=== PATIENT | male | born 1995 | race Caucasian/White ===

== ENCOUNTER 2024-04-15 19:35 | Inpatient (IN) | payer MEDICAID ==
[~2024-04-15] VITALS: Ht 175.3 cm; Wt 88.9 kg
[~2024-04-15 19:35] MED LIST: ARIP10TA38 PO; SERT-440 PO
[2024-04-15 21:11] VITALS: BP 123/80; PULSE 82; RESP 18; TEMP 98.5; O2SAT 97
[2024-04-16] MEDS ORDERED: ACETAMINOPHEN 325 MG TABLET PO PRN (07:45)
[2024-04-16] MEDS ORDERED: BACITRACIN 28 GM OINTMENT TP PRN (07:45)
[2024-04-16] MEDS ORDERED: PETROLATUM,WHITE 28 GM JELLY TP PRN (07:45)
[2024-04-16] MEDS ORDERED: MAG HYDROX/ALUMINUM HYD/SIMETH ES 30 ML SUSPENSION UDCUP PO PRN (07:45)
[2024-04-16] MEDS ORDERED: MAGNESIUM HYDROXIDE SUSPENSION 30 ML UDCUP PO PRN (07:45)
[2024-04-16] MEDS ORDERED: CloNIDine HCL 0.1 MG TABLET PO PRN (07:45)
[2024-04-16] MEDS ORDERED: DOCUSATE SODIUM 100 MG CAPSULE PO PRN (07:45)
[2024-04-16] MEDS ORDERED: OMEPRAZOLE 20 MG CAPSULE PO PRN (07:45)
[2024-04-16] MEDS ORDERED: LOPERAMIDE HCL 2 MG CAPSULE PO PRN (07:45)
[2024-04-16 08:06] LABS: BASOPHILS % (AUTO) 0.8 % (0.0-2.0); EOSINOPHILS % (AUTO) 0.9 % (1.0-6.0); HEMOGLOBIN 14.9 g/dL (13.5-17.5); LYMPHOCYTES # (AUTO) 2.1 K/uL (1.0-4.8); LYMPHOCYTES % (AUTO) 23.2 % (22.0-44.0); MEAN CORPUSCULAR HEMOGLOBIN 31.9 pg (26.0-34.0); MEAN CORPUSCULAR HGB CONC 34.7 G/dL (31.0-37.0); MEAN CORPUSCULAR VOLUME 92 fL (80-100); MONOCYTES # (AUTO) 0.7 K/uL (0.1-1.0); MONOCYTES % (AUTO) 7.7 % (2.0-9.0); NEUTROPHILS # (AUTO) 5.9 K/uL (1.8-7.7); NEUTROPHILS % (AUTO) 67.4 % (40.0-70.0); PLATELET COUNT (AUTO) 219 K/uL (150-450); RED BLOOD CELL COUNT(AUTO) 4.69 MIL/uL (4.50-5.90); RED CELL DISTRIBUTION WIDTH 13.3 % (11.5-14.5); WHITE BLOOD COUNT (AUTO) 8.8 K/uL (4.5-11.0)
[2024-04-16 08:14] LABS: HEMOGLOBIN A1C 5.2 % (3.8-5.6)
[2024-04-16 08:20] LABS: ALANINE AMINOTRANSFERASE 28 U/L (12-78); ALBUMIN 4.2 g/dL (3.4-5.0); ALKALINE PHOSPHATASE 74 U/L (46-116); ANION GAP 8 mmol/L (8-16); ASPARTATE AMINOTRANSFERASE 20 U/L (15-37); BILIRUBIN,TOTAL 0.3 mg/dL (0.1-1.0); CALCIUM, TOTAL 9.1 mg/dL (8.8-10.5); CARBON DIOXIDE 29 mmol/L (22-29); CHLORIDE 103 mmol/L (98-107); CHOL/HDL RATIO 3.1 (4.2-7.3); CHOLESTEROL 191 mg/dL (131-200); FREE T4 (FREE THYROXINE) 0.83 ng/dL (0.76-1.46); GLOMERULAR FILTR. RATE CALC > 60 mL/min (>60); GLUCOSE,RANDOM 95 mg/dL (70-110); HDL CHOLESTEROL 62 mg/dL (40-60); LDL CHOL (CALC.) 118 mg/dL (0-130); POTASSIUM 3.8 mmol/L (3.5-5.1); SODIUM SERUM 140 mmol/L (136-145); THYROID STIMULATING HORMONE 4.51 uIU/mL (0.36-3.74); TOTAL PROTEIN, SERUM 7.4 g/dL (6.4-8.2); TRIGLYCERIDES 53 mg/dL (15-150); UREA NITROGEN, BLOOD 17 mg/dL (7-18)
[2024-04-16] MEDS ORDERED: DiphenhydrAMINE HCL 50 MG/ML VIAL ONE (10:18)
[2024-04-16] MEDS ORDERED: HALOPERIDOL LACTATE 5 MG/ML VIAL ONE (10:18)
[2024-04-16] MEDS ORDERED: LORazepam 2 MG/ML VIAL ONE (10:18)
[2024-04-16 11:02] VITALS: BP 111/62; PULSE 76; RESP 18; TEMP 98.2; O2SAT 98
[2024-04-16] MEDS: LORazepam 2 MG/ML VIAL IM ONE (11:03)
[2024-04-16] MEDS: HALOPERIDOL LACTATE 5 MG/ML VIAL IM ONE (11:04)
[2024-04-16] MEDS: DiphenhydrAMINE HCL 50 MG/ML VIAL IM ONE (11:05)
[2024-04-16 14:22] VITALS: BP 140/81; PULSE 78; RESP 18; TEMP 98; O2SAT 98
[2024-04-16] MEDS: RisperiDONE 3 MG TABLET PO SCH (17:57)
[2024-04-16 20:16] VITALS: BP 133/52; PULSE 77; TEMP 97.5; O2SAT 100
[2024-04-17 08:45] LABS: APPEARANCE,URINE CLEAR (CLEAR); BILIRUBIN,URINE NEGATIVE (NEGATIVE); COLOR,URINE LIGHT YELLOW (YELLOW); GLUCOSE, URINE (UA) NEGATIVE (NEGATIVE); KETONES,URINE NEGATIVE (NEGATIVE); LEUKOCYTE ESTERASE ,URINE NEGATIVE (NEGATIVE); NITRATE,URINE NEGATIVE (NEGATIVE); OCCULT BLOOD,URINE NEGATIVE (NEGATIVE); PH,URINE 7.5 (5.0-8.0); PH,URINE DRUG SCREEN 7.5 (5.0-8.0); PROTEIN,URINE NEGATIVE (NEGATIVE); SPECIFIC GRAVITIY, URINE 1.018 (1.003-1.030); UROBILINOGEN,URINE <=1.0 mg/dL (<=1.0)
[2024-04-17 08:51] LABS: ALCOHOL, URINE DRUG SCREEN NEGATIVE (NEGATIVE); AMPHET/METH SCREEN,URINE NEGATIVE (NEGATIVE); BARBITURATE SCREEN, URINE NEGATIVE (NEGATIVE); BENZODIAZEPINES SCREEN,URINE NEGATIVE (NEGATIVE); CANNABINOID SCREEN,URINE POSITIVE (NEGATIVE); COCAINE SCREEN,URINE NEGATIVE (NEGATIVE); METHADONE SCREEN, URINE NEGATIVE (NEGATIVE); OPIATE SCREEN,URINE NEGATIVE (NEGATIVE); PHENCYCLIDINE SCREEN,URINE NEGATIVE (NEGATIVE)
[2024-04-17 09:12] VITALS: BP 119/66; PULSE 53; RESP 14; TEMP 98; O2SAT 95
[2024-04-17] MEDS: RisperiDONE 3 MG TABLET PO SCH (17:00)
[2024-04-17] MEDS ORDERED: LORazepam 2 MG/ML VIAL ONE (17:09)
[2024-04-17] MEDS ORDERED: DiphenhydrAMINE HCL 50 MG/ML VIAL ONE (17:10)
[2024-04-17] MEDS ORDERED: HALOPERIDOL LACTATE 5 MG/ML VIAL ONE (17:10)
[2024-04-17] MEDS: LORazepam 2 MG/ML VIAL IM ONE (17:38)
[2024-04-17] MEDS: DiphenhydrAMINE HCL 50 MG/ML VIAL IM ONE (17:39)
[2024-04-17] MEDS: HALOPERIDOL LACTATE 5 MG/ML VIAL IM ONE (17:39)
[2024-04-17 18:20] VITALS: BP 125/78; PULSE 72; RESP 18; TEMP 98.1
[2024-04-17] MEDS: IBUPROFEN 600 MG TABLET PO PRN (18:22)
[2024-04-18 00:55] VITALS: BP 114/82; PULSE 74; RESP 18; TEMP 98.7; O2SAT 98
[2024-04-18] MEDS: BENZOCAINE/MENTHOL LOZENGE PO PRN (05:21)
[2024-04-18 05:36] VITALS: RESP 18
[2024-04-18 08:26] VITALS: BP 136/87; PULSE 106; RESP 18; TEMP 97.7; O2SAT 94
[2024-04-18] MEDS: LORazepam 2 MG TABLET PO PRN (09:22)
[2024-04-18] MEDS: HALOPERIDOL 5 MG TABLET PO PRN (09:22)
[2024-04-18 20:45] VITALS: BP 110/65; PULSE 73; TEMP 98; O2SAT 96
[2024-04-18] MEDS: ZOLPIDEM TARTRATE 10 MG TABLET PO PRN (21:37)
[2024-04-19 08:08] VITALS: BP 103/63; PULSE 104; RESP 15; TEMP 98.4; O2SAT 98
[2024-04-19 20:16] VITALS: BP 114/114; PULSE 87; TEMP 97.8; O2SAT 100
[2024-04-20 02:25] VITALS: BP 110/74; PULSE 101; RESP 18; TEMP 98; O2SAT 98
[2024-04-20 08:36] VITALS: BP 122/74; PULSE 100; RESP 16; TEMP 97.1; O2SAT 97
[2024-04-20 14:37] VITALS: RESP 18
[2024-04-20] MEDS: ALBUTEROL SULFATE HFA 90 MCG/PUFF 8 GM INHALER IH PRN (18:12)
[2024-04-20 20:30] VITALS: BP 115/80; PULSE 90; TEMP 97.4; O2SAT 96
[2024-04-21 08:07] VITALS: BP 109/78; PULSE 112; RESP 17; TEMP 97.9; O2SAT 99
[2024-04-21 21:04] VITALS: BP 118/76; PULSE 99; RESP 18; TEMP 98; O2SAT 99
[2024-04-22 08:21] VITALS: BP 122/87; PULSE 103; RESP 14; TEMP 98.2; O2SAT 100
[2024-04-22 21:59] VITALS: RESP 19; TEMP 97.5
[2024-04-23 11:26] VITALS: BP 112/76; PULSE 18; RESP 20; TEMP 97.3
[2024-04-23 17:08] VITALS: RESP 18; O2SAT 100
[2024-04-23 18:08] VITALS: RESP 18; O2SAT 100
[2024-04-23 20:43] VITALS: RESP 18
[2024-04-24 08:00] VITALS: BP 111/65; PULSE 104; RESP 18; TEMP 98; O2SAT 99
[2024-04-24 09:16] VITALS: BP 115/65; PULSE 104; RESP 18; TEMP 98; O2SAT 99
[2024-04-24] MEDS: ONDANSETRON HCL 4 MG TABLET PO PRN (09:24)
[2024-04-24 21:06] VITALS: BP 111/90; PULSE 97; RESP 18; TEMP 96.8; O2SAT 98
[2024-04-25 02:06] VITALS: BP 110/64; PULSE 85
[2024-04-25 08:18] VITALS: BP 105/62; PULSE 100; RESP 17; TEMP 97.1; O2SAT 99
[2024-04-25] MEDS ORDERED: RISP3TAB77 PO (18:57)
== END 2024-04-25 20:51 | disposition home or self-care (01) | DRG 750 ==
LOC: B3A 19:49
PROVIDERS: ADMIT Psychiatry & Neurology Psychiatry; ATTEND Psychiatry & Neurology Psychiatry
DX: F25.0 Schizoaffective disorder, bipolar type (principal); F10.90 Alcohol use, unspecified, uncomplicated; F41.9 Anxiety disorder, unspecified; G47.00 Insomnia, unspecified; K59.00 Constipation, unspecified
CPT/HCPCS: 80053; 80061; 80307; 81003; 83036; 84439; 84443; 85025; J1200; J1630; J2060; J3535; Q0162

== ENCOUNTER 2024-04-17 20:35 | Emergency (ER) | payer MEDICAID ==
[~2024-04-17] VITALS: Ht 180.3 cm; Wt 86.4 kg
[2024-04-17 20:45] VITALS: BP 118/80; PULSE 91; RESP 16; TEMP 97.5
[2024-04-17] MEDS: ACETAMINOPHEN 500 MG TABLET PO ONE (22:45)
== END 2024-04-18 00:22 ==
LOC: EMS 20:37
DX: S62.307A Unspecified fracture of fifth metacarpal bone, left hand, initial encounter for closed fracture (principal); F32.A Depression, unspecified; F12.90 Cannabis use, unspecified, uncomplicated; X58.XXXA Exposure to other specified factors, initial encounter; Y93.89 Activity, other specified; Y92.89 Other specified places as the place of occurrence of the external cause; Y99.8 Other external cause status
CPT/HCPCS: 99283

== ENCOUNTER 2024-05-01 20:05 | Inpatient (IN) | payer MEDICAID ==
[~2024-05-01] VITALS: Ht 180.3 cm; Wt 40.4 kg
[~2024-05-01 20:05] MED LIST changes: -ARIP10TA38 PO; +RISP3TAB77 PO; -SERT-440 PO
[2024-05-01] MEDS ORDERED: HALOPERIDOL 5 MG TABLET PO PRN (20:15)
[2024-05-01] MEDS: ZOLPIDEM TARTRATE 10 MG TABLET PO PRN (21:53)
[2024-05-02 01:07] VITALS: BP 124/79; PULSE 95; RESP 18; TEMP 98.2; O2SAT 97
[2024-05-02 08:10] VITALS: BP 144/91; PULSE 98; RESP 18; TEMP 98.4; O2SAT 98
[2024-05-02 08:19] LABS: BASOPHILS % (AUTO) 0.4 % (0.0-2.0); EOSINOPHILS % (AUTO) 0.6 % (1.0-6.0); HEMATOCRIT 43.3 % (41-53); HEMOGLOBIN 14.8 g/dL (13.5-17.5); LYMPHOCYTES # (AUTO) 1.7 K/uL (1.0-4.8); LYMPHOCYTES % (AUTO) 17.3 % (22.0-44.0); MEAN CORPUSCULAR HEMOGLOBIN 31.1 pg (26.0-34.0); MEAN CORPUSCULAR HGB CONC 34.2 G/dL (31.0-37.0); MEAN CORPUSCULAR VOLUME 91 fL (80-100); MONOCYTES # (AUTO) 0.7 K/uL (0.1-1.0); MONOCYTES % (AUTO) 6.5 % (2.0-9.0); NEUTROPHILS # (AUTO) 7.5 K/uL (1.8-7.7); NEUTROPHILS % (AUTO) 75.2 % (40.0-70.0); PLATELET COUNT (AUTO) 290 K/uL (150-450); RED BLOOD CELL COUNT(AUTO) 4.77 MIL/uL (4.50-5.90); RED CELL DISTRIBUTION WIDTH 13.1 % (11.5-14.5)
[2024-05-02 08:35] LABS: ALANINE AMINOTRANSFERASE 33 U/L (12-78); ALBUMIN 4.2 g/dL (3.4-5.0); ALKALINE PHOSPHATASE 79 U/L (46-116); ANION GAP 10 mmol/L (8-16); ASPARTATE AMINOTRANSFERASE 22 U/L (15-37); BILIRUBIN,TOTAL 0.5 mg/dL (0.1-1.0); CALCIUM, TOTAL 9.1 mg/dL (8.8-10.5); CARBON DIOXIDE 26 mmol/L (22-29); CHLORIDE 99 mmol/L (98-107); CHOL/HDL RATIO 3.3 (4.2-7.3); CHOLESTEROL 172 mg/dL (131-200); CREATININE 0.79 mg/dL (0.60-1.30); GLOMERULAR FILTR. RATE CALC > 60 mL/min (>60); GLUCOSE,RANDOM 137 mg/dL (70-110); HDL CHOLESTEROL 52 mg/dL (40-60); LDL CHOL (CALC.) 109 mg/dL (0-130); POTASSIUM 3.3 mmol/L (3.5-5.1); SODIUM SERUM 135 mmol/L (136-145); TOTAL PROTEIN, SERUM 7.9 g/dL (6.4-8.2); TRIGLYCERIDES 54 mg/dL (15-150); UREA NITROGEN, BLOOD 11 mg/dL (7-18)
[2024-05-02 08:39] LABS: APPEARANCE,URINE CLEAR (CLEAR); BILIRUBIN,URINE NEGATIVE (NEGATIVE); COLOR,URINE LIGHT YELLOW (YELLOW); GLUCOSE, URINE (UA) NEGATIVE (NEGATIVE); KETONES,URINE NEGATIVE (NEGATIVE); LEUKOCYTE ESTERASE ,URINE NEGATIVE (NEGATIVE); NITRATE,URINE NEGATIVE (NEGATIVE); OCCULT BLOOD,URINE NEGATIVE (NEGATIVE); PH,URINE 6.5 (5.0-8.0); PH,URINE DRUG SCREEN 6.5 (5.0-8.0); PROTEIN,URINE NEGATIVE (NEGATIVE); SPECIFIC GRAVITIY, URINE 1.024 (1.003-1.030); UROBILINOGEN,URINE <=1.0 mg/dL (<=1.0)
[2024-05-02 08:44] LABS: HEMOGLOBIN A1C 5.4 % (3.8-5.6)
[2024-05-02 08:48] LABS: ALCOHOL, URINE DRUG SCREEN NEGATIVE (NEGATIVE); AMPHET/METH SCREEN,URINE NEGATIVE (NEGATIVE); BARBITURATE SCREEN, URINE NEGATIVE (NEGATIVE); BENZODIAZEPINES SCREEN,URINE NEGATIVE (NEGATIVE); CANNABINOID SCREEN,URINE POSITIVE (NEGATIVE); COCAINE SCREEN,URINE NEGATIVE (NEGATIVE); METHADONE SCREEN, URINE NEGATIVE (NEGATIVE); OPIATE SCREEN,URINE NEGATIVE (NEGATIVE); PHENCYCLIDINE SCREEN,URINE NEGATIVE (NEGATIVE)
[2024-05-02 09:11] LABS: FREE T4 (FREE THYROXINE) 1.04 ng/dL (0.76-1.46); THYROID STIMULATING HORMONE 3.32 uIU/mL (0.36-3.74)
[2024-05-02] MEDS: RisperiDONE 3 MG TABLET PO SCH (10:21)
[2024-05-02] MEDS: SERTRALINE HCL 50 MG TABLET PO SCH (10:21)
[2024-05-02 20:21] VITALS: BP 107/76; PULSE 97; TEMP 98.2; O2SAT 97
[2024-05-02] MEDS ORDERED: LOPERAMIDE HCL 2 MG CAPSULE PO PRN (20:45)
[2024-05-02] MEDS ORDERED: DOCUSATE SODIUM 100 MG CAPSULE PO PRN (20:45)
[2024-05-02] MEDS ORDERED: OMEPRAZOLE 20 MG CAPSULE PO PRN (20:45)
[2024-05-02] MEDS ORDERED: MAG HYDROX/ALUMINUM HYD/SIMETH ES 30 ML SUSPENSION UDCUP PO PRN (20:45)
[2024-05-02] MEDS ORDERED: PETROLATUM,WHITE 28 GM JELLY TP PRN (20:45)
[2024-05-02] MEDS ORDERED: CloNIDine HCL 0.1 MG TABLET PO PRN (20:45)
[2024-05-02] MEDS ORDERED: BACITRACIN 28 GM OINTMENT TP PRN (20:45)
[2024-05-02] MEDS ORDERED: ACETAMINOPHEN 325 MG TABLET PO PRN (20:45)
[2024-05-02] MEDS ORDERED: MAGNESIUM HYDROXIDE SUSPENSION 30 ML UDCUP PO PRN (20:45)
[2024-05-02] MEDS ORDERED: IBUPROFEN 600 MG TABLET PO PRN (20:45)
[2024-05-02] MEDS ORDERED: ONDANSETRON HCL 4 MG TABLET PO PRN (20:45)
[2024-05-02] MEDS: LORazepam 2 MG TABLET PO PRN (21:32)
[2024-05-02] MEDS: POTASSIUM CHLORIDE 20 MEQ ER TABLET PO ONE (21:55)
[2024-05-03 08:31] VITALS: BP 102/79; PULSE 90; RESP 17; TEMP 98.2; O2SAT 98
[2024-05-03 19:02] VITALS: BP 122/70; PULSE 89; RESP 18; TEMP 97.5; O2SAT 99
[2024-05-04 00:24] VITALS: BP 116/62; PULSE 82; RESP 16; TEMP 97.8; O2SAT 98
[2024-05-04 08:21] VITALS: BP 134/83; PULSE 106; RESP 16; TEMP 97.3; O2SAT 96
[2024-05-04] MEDS: ALBUTEROL SULFATE HFA 90 MCG/PUFF 8 GM INHALER IH PRN (16:30)
[2024-05-04 17:59] VITALS: BP 131/79; PULSE 88; RESP 17; TEMP 98.2; O2SAT 98
[2024-05-04 20:50] VITALS: BP 131/79; PULSE 88; RESP 17; TEMP 98.2; O2SAT 98
[2024-05-05] MEDS: BENZOCAINE/MENTHOL LOZENGE PO PRN (00:10)
[2024-05-05 08:50] VITALS: BP 109/65; PULSE 92; RESP 17; TEMP 97.9; O2SAT 96
[2024-05-05] MEDS ORDERED: SERT-158 PO (18:32)
== END 2024-05-05 18:40 | disposition home or self-care (01) | DRG 750 ==
LOC: B3A 20:17
PROVIDERS: ADMIT Psychiatry & Neurology Psychiatry; ATTEND Psychiatry & Neurology Psychiatry
PROC: GZHZZZZ Group Psychotherapy (ICD-10-PCS; principal; 2024-05-05)
PROC: GZ51ZZZ Individual Psychotherapy, Behavioral (ICD-10-PCS; 2024-05-05)
PROC: GZ52ZZZ Individual Psychotherapy, Cognitive (ICD-10-PCS; 2024-05-05)
DX: F25.0 Schizoaffective disorder, bipolar type (principal); E87.6 Hypokalemia; F32.A Depression, unspecified; F41.9 Anxiety disorder, unspecified; G47.00 Insomnia, unspecified; K59.00 Constipation, unspecified; F10.90 Alcohol use, unspecified, uncomplicated; F12.10 Cannabis abuse, uncomplicated; Z79.899 Other long term (current) drug therapy
CPT/HCPCS: 80053; 80061; 80307; 81003; 83036; 84132; 84439; 84443; 85025; 87081; J3535